=== PATIENT | male | born 1985 | race Caucasian/White ===

== ENCOUNTER 2024-03-20 12:30 | Emergency (ER) | payer MEDICAID ==
[~2024-03-20] VITALS: Ht 170.2 cm; Wt 65.8 kg
[2024-03-20] MEDS ORDERED: LIDOCAINE HCL/MPF 1% 30 ML VIAL IJ ONE (12:42)
[2024-03-20] MEDS ORDERED: TDAP [DIPH/PERTUSSIS/TET] 0.5 ML VIAL IM ONE (12:54)
[2024-03-20] MEDS: TDAP [DIPH/PERTUSSIS/TET] 0.5 ML VIAL IM ONE (12:59)
[2024-03-20 13:52] VITALS: BP 132/65; TEMP 98; O2SAT 98
== END 2024-03-20 13:53 | disposition home or self-care (01) ==
LOC: ER 12:47
DX: S51.811A Laceration without foreign body of right forearm, initial encounter (principal); W45.8XXA Other foreign body or object entering through skin, initial encounter; Y93.89 Activity, other specified; Y92.89 Other specified places as the place of occurrence of the external cause; Y99.8 Other external cause status
CPT/HCPCS: 12002; 90471; 90715; 99283; A6403; J3490